=== PATIENT | male | born 1965 | race Caucasian/White ===

== ENCOUNTER → 2023-01-18 | Outpatient (CLI) | payer BC ==
--- NOTE | 2023-01-18 11:02 | XR ---
Exam: Right knee 3 views Date: 01/18/2023 Comparison: None Clinical History: Pain with bending right knee. Technique: 3 views of the right knee were obtained per protocol. Findings: There is a very small suprapatellar effusion. There is mild patellofemoral joint space narrowing. The re is no dislocation. There is mild medial compartment joint space narrowing with tiny marginal osteo phytes. There is no acute fracture. Impression: Mild right knee osteoarthrosis without acute fracture or dislocation.
== END | disposition home or self-care (01) ==
LOC: RADXRMAIN 10:43
PROVIDERS: ATTEND Family Medicine
DX: M17.11 Unilateral primary osteoarthritis, right knee (principal)